=== PATIENT | male | born 1930 | race Caucasian/White ===

== ENCOUNTER 2020-01-12 15:49 | Emergency (ER) | payer SELFPAY ==
[~2020-01-12] VITALS: Ht 175.3 cm; Wt 70.0 kg
[2020-01-12 16:25] VITALS: BP 150/83
== END 2020-01-12 16:56 | disposition home or self-care (01) ==
LOC: ED 15:56
DX: R04.2 Hemoptysis (principal); I10 Essential (primary) hypertension
CPT/HCPCS: 71045; 99283

== ENCOUNTER 2020-01-29 10:00 | Emergency (ER) | payer MEDICARE, OTHER ==
[~2020-01-29] VITALS: Ht 172.7 cm; Wt 62.2 kg
--- NOTE | 2020-01-29 10:09 | NUR ---
TASK RN, FIRST CONTACT WITH PT. Late note charting due to pt care. Pt presents from home to ED by EMS with c/o "vertigo" with history of ED visits and hospitalization of the same. Pt states he is "nauseated" and can't "keep meds down". Unalbe to obtain oral temp or axillary temp on pt with multiple attempts. ED techs assisting with attempts. Pt connected to NIBP cuff, continous pulse ox monitor, and cardiac montior. Bedrails up x 2 and call light within reach. EDMD at bedside. NADN. No needs expressed at this time.
[2020-01-29] MEDS ORDERED: MECLIZINE CHEWABLE 25 MG TAB ONE (10:15)
[2020-01-29] MEDS ORDERED: AMLO-150 PO (10:25)
[2020-01-29] MEDS ORDERED: OMEP-110 PO (10:25)
[2020-01-29] MEDS ORDERED: CEPH-376 PO (10:25)
[2020-01-29] MEDS ORDERED: BENA40TA3 PO (10:25)
[2020-01-29] MEDS ORDERED: SODIUM CHLORIDE FLUSH 10ML SYR IVF ONE (10:30)
[2020-01-29] MEDS ORDERED: MECLIZINE CHEWABLE 25 MG TAB PO ONE (10:30)
[2020-01-29 10:43] LABS: ALBUMIN 3.7 g/dL (3.4-5.0); ANION GAP 6 mmol/L (5-15); CALCIUM 8.9 mg/dL (8.5-10.1); CHLORIDE 112 mmol/L (98-107); CREATININE 1.32 mg/dL (0.7-1.3)
[2020-01-29 10:53] LABS: MEAN CORPUSCULAR HEMOGLOBIN 28.4 pg (27.5-34.5); MEAN CORPUSCULAR HGB CONC 32.3 g/dL (33.2-36.2); MEAN PLATELET VOLUME 7.7 fL (7.4-10.4); PLATELET COUNT 335 x10^3/uL (130-400); RED BLOOD COUNT 4.43 x10^6/uL (4.38-5.82); RED CELL DISTRIBUTION WIDTH 23.7 % (9.4-14.8)
[2020-01-29 11:12] LABS: BASOPHILS # (AUTO) 0.04 x10^3/uL (0-0.1); BASOPHILS % (AUTO) 1 % (0-1); EOSINOPHILS # (AUTO) 0.07 x10^3/uL (0-0.4); EOSINOPHILS % (AUTO) 1 % (1-7); LYMPHOCYTES # (AUTO) 1.84 x10^3/uL (1-3.4); LYMPHOCYTES % (AUTO) 25 % (22-44); MD SCAN; MONOCYTES # (AUTO) 0.21 x10^3/uL (0.2-0.8); MONOCYTES % (AUTO) 3 % (2-9); NEUTROPHILS % (AUTO) 71 % (42-75)
--- NOTE | 2020-01-29 11:17 | NUR ---
Pt unable to provide urine sample. ED MD aware. ED MD verbally stated straight cath not necessary.
[2020-01-29] MEDS ORDERED: DIAZEPAM 5 MG TABLET PO ONE (12:00)
[2020-01-29] MEDS ORDERED: DIAZEPAM 5 MG TABLET ONE (12:13)
--- NOTE | 2020-01-29 12:17 | NUR ---
PT RESTING IN [facility]. VSS. NAD. MEDICATED PER MAR
[2020-01-29 13:23] VITALS: BP 140/65
--- NOTE | 2020-01-29 13:24 | NUR ---
Patient given discharge instructions and they have confirmed that they understand the instructions. Patient ambulatory with steady gait. TAXI VOUCHER GIVEN AT DC. PT REFUSED TO TAKE WALKER AT IL.
== END 2020-01-29 13:25 | disposition home or self-care (01) ==
LOC: ED 10:50
DX: H81.399 Other peripheral vertigo, unspecified ear (principal); H81.10 Benign paroxysmal vertigo, unspecified ear; I10 Essential (primary) hypertension; R94.31 Abnormal electrocardiogram [ECG] [EKG]
CPT/HCPCS: 36415; 70551; 80048; 82040; 85025; 93005; 99285

== ENCOUNTER 2020-02-02 13:35 | Emergency (ER) | payer MEDICARE ==
[~2020-02-02] VITALS: Ht 172.7 cm; Wt 58.0 kg
[~2020-02-02 13:35] MED LIST: AMLO-150 PO; BENA40TA3 PO; CEPH-376 PO; OMEP-110 PO
[2020-02-02 13:41] VITALS: BP 115/49
--- NOTE | 2020-02-02 13:47 | NUR ---
vitals obtained by this tech
--- NOTE | 2020-02-02 14:59 | NUR ---
CONSTRUCTION OPERATIONS MANAGER: PT IN LOBBY, + BED MARY PINEDA BY MANAGER CASE
--- NOTE | 2020-02-02 15:32 | NUR ---
TROUBLE LINEMAN: PT TO ROOM 12 FROM [facility] AT THIS TIME VIA WHEELCHAIR FOR COMFORT. B[employer] CARPENTER STATES "NO BUGS NOTED DURING DECON."
== END 2020-02-02 17:24 | disposition home or self-care (01) ==
LOC: ED 16:19
DX: S30.0XXA Contusion of lower back and pelvis, initial encounter (principal); I10 Essential (primary) hypertension; F17.200 Nicotine dependence, unspecified, uncomplicated; W18.39XA Other fall on same level, initial encounter; Y93.01 Activity, walking, marching and hiking; Y92.89 Other specified places as the place of occurrence of the external cause; Y99.8 Other external cause status
CPT/HCPCS: 72192; 99284